=== PATIENT | female | born 1940 | race Caucasian/White ===

== ENCOUNTER 2021-07-30 18:15 | Inpatient (IN) | payer MEDICARE ==
[~2021-07-30 18:15] MED LIST: FLU VACC QS2021-22(6MOS UP)/PF 60 MCG/0.5 ML SYRINGE IM ONE
[2021-07-30 23:13] VITALS: BMI 28.5
[2021-07-31] MEDS ORDERED: Ondansetron PF 4 MG/2 ML Vial IVP PRN (00:10)
[2021-07-31] MEDS ORDERED: Dextrose 5% in Water 1,000 ML IV PRN (00:10)
[2021-07-31] MEDS ORDERED: Ondansetron ODT 4 MG TAB PO PRN (00:10)
[2021-07-31] MEDS ORDERED: Acetaminophen 650 MG Suppository PR PRN (00:10)
[2021-07-31] MEDS ORDERED: Dextrose 50% Abboject 50 ML SYRINGE SLOW IVP PRN (00:10)
[2021-07-31] MEDS ORDERED: Ketorolac Tromethamine 30 MG/ML VIAL IVP SCH (00:15)
[2021-07-31] MEDS: HumaLOG 300 UNITS/3 ML VIAL SC PRN ×3 (01:29→16:23)
[2021-07-31 02:18] LABS: Troponin I 0.028 ng/mL (< 0.028)
[2021-07-31] MEDS: Acetaminophen 325 MG TAB PO PRN ×5 (05:20→23:45)
[2021-07-31 05:46] LABS: #Eosinphils 0.1 thou/uL (0.0-0.7); #Lymphocytes 2.6 thou/uL (1.20-3.40); #Monocytes 0.5 thou/uL (0.11-0.59); #Neutrophils 3.4 thou/uL (1.40-6.50); %Basophils 0.6 % (0.0-1.0); %Eosinophils 1.4 % (0.0-10.0); %Lymphocytes 39.6 % (21.0-51.0); %Monocytes 7.3 % (0.0-10.0); %Neutrophils 51.2 % (42.0-75.0); Hemoglobin 11.1 g/dL (12.0-16.0); Mean Corpuscular HGB CONC 34.5 g/dL (32.0-36.0); Mean Corpuscular Hemoglobin 31.5 pg (27.0-31.0); Mean Corpuscular Volume 91.2 fL (78.0-98.0); Platelet Count 229 thou/uL (130-400); RBC Distribution Width 11.5 % (11.5-14.5); Red Blood Cell (RBC) Count 3.53 mill/uL (4.20-5.40); White Blood Cell (WBC) Count 6.6 thou/uL (4.8-10.8)
[2021-07-31 06:07] LABS: Anion Gap 13 mmol/L (10-20); BUN (Urea Nitrogen) 4 mg/dL (9.8-20.1); Calc. Creatinine Clearance 80 mL/min (70-130); Calcium 8.8 mg/dL (7.8-10.44); Carbon Dioxide 24 mmol/L (23-31); Chloride 95 mmol/L (98-107); Glucose 181 mg/dL (83-110); Potassium 4.1 mmol/L (3.5-5.1); Sodium 128 mmol/L (136-145)
[2021-07-31] MEDS: Ketorolac Tromethamine 30 MG/ML VIAL IVP PRN ×3 (06:14→18:10)
[2021-07-31] MEDS: Levothyroxine Sodium 25 MCG TAB PO SCH (06:15)
[2021-07-31] MEDS: Carvedilol 6.25 MG TAB PO SCH ×2 (09:27→16:38)
[2021-07-31] MEDS: Enoxaparin Sodium 40 MG/0.4 ML SYRINGE SC SCH (09:27)
[2021-07-31] MEDS: Amlodipine 10 MG TAB PO SCH (09:28)
[2021-07-31] MEDS: Sodium Chloride 0.9% 1,000 ML IV SCH (09:41)
[2021-07-31] MEDS: Benzonatate 100 MG CAP PO PRN ×2 (14:52→23:45)
[2021-07-31] MEDS: hydrALAZINE 25 MG TAB PO SCH (20:17)
[2021-07-31] MEDS: Simvastatin 5 MG TAB PO SCH (20:17)
[2021-07-31] MEDS: Melatonin 3 MG TAB PO SCH (20:17)
[2021-08-01] MEDS: Sodium Chloride 0.9% 1,000 ML IV SCH (03:53)
[2021-08-01] MEDS: Levothyroxine Sodium 25 MCG TAB PO SCH (05:24)
[2021-08-01] MEDS: Fentanyl 100 MCG/2 ML VIAL SLOW IVP PRN (05:24)
[2021-08-01 05:35] LABS: #Eosinphils 0.3 thou/uL (0.0-0.7); #Lymphocytes 4.5 thou/uL (1.20-3.40); #Monocytes 0.5 thou/uL (0.11-0.59); #Neutrophils 4.5 thou/uL (1.40-6.50); %Basophils 0.3 % (0.0-1.0); %Eosinophils 3.3 % (0.0-10.0); %Lymphocytes 45.6 % (21.0-51.0); %Monocytes 5.1 % (0.0-10.0); %Neutrophils 45.6 % (42.0-75.0); Hemoglobin 12.1 g/dL (12.0-16.0); Mean Corpuscular HGB CONC 33.5 g/dL (32.0-36.0); Mean Corpuscular Hemoglobin 30.8 pg (27.0-31.0); Mean Corpuscular Volume 91.8 fL (78.0-98.0); Mean Platelet Volume 7.2 fL (7.4-10.4); Platelet Count 258 thou/uL (130-400); RBC Distribution Width 11.4 % (11.5-14.5); Red Blood Cell (RBC) Count 3.94 mill/uL (4.20-5.40); White Blood Cell (WBC) Count 9.9 thou/uL (4.8-10.8)
[2021-08-01 05:56] LABS: Anion Gap 14 mmol/L (10-20); BUN (Urea Nitrogen) 5 mg/dL (9.8-20.1); Calc. Creatinine Clearance 78 mL/min (70-130); Calcium 8.7 mg/dL (7.8-10.44); Carbon Dioxide 24 mmol/L (23-31); Chloride 94 mmol/L (98-107); Glucose 225 mg/dL (83-110); Potassium 3.8 mmol/L (3.5-5.1); Sodium 128 mmol/L (136-145)
[2021-08-01] MEDS: Acetaminophen 325 MG TAB PO PRN ×3 (06:51→18:27)
[2021-08-01] MEDS ORDERED: Loratadine 10 MG TAB PO SCH (07:00)
[2021-08-01] MEDS: hydrALAZINE 25 MG TAB PO SCH ×2 (10:09→21:41)
[2021-08-01] MEDS: Carvedilol 6.25 MG TAB PO SCH ×2 (10:10→18:09)
[2021-08-01] MEDS: Amlodipine 10 MG TAB PO SCH (10:10)
[2021-08-01] MEDS: Polyethylene Glycol 3350 17 GM Packet PO SCH (10:11)
[2021-08-01] MEDS: Enoxaparin Sodium 40 MG/0.4 ML SYRINGE SC SCH (10:11)
[2021-08-01] MEDS ORDERED: Lantus 1000 UNITS/10 ML VIAL SC SCH (10:15)
[2021-08-01] MEDS: HumaLOG 300 UNITS/3 ML VIAL SC PRN ×2 (11:03→21:42)
[2021-08-01] MEDS: Benzonatate 100 MG CAP PO PRN ×2 (12:50→21:41)
[2021-08-01] MEDS ORDERED: Sodium Chloride 0.9% 1,000 ML IV SCH (17:00)
[2021-08-01] MEDS: Melatonin 3 MG TAB PO SCH (21:40)
[2021-08-01] MEDS: Simvastatin 5 MG TAB PO SCH (21:41)
[2021-08-02] MEDS: Levothyroxine Sodium 25 MCG TAB PO SCH (05:17)
[2021-08-02 05:19] LABS: #Basophils 0.1 thou/uL (0.0-0.2); #Eosinphils 0.3 thou/uL (0.0-0.7); #Lymphocytes 3.4 thou/uL (1.20-3.40); #Monocytes 0.4 thou/uL (0.11-0.59); #Neutrophils 3.2 thou/uL (1.40-6.50); %Basophils 0.7 % (0.0-1.0); %Eosinophils 3.6 % (0.0-10.0); %Lymphocytes 47.2 % (21.0-51.0); %Monocytes 4.9 % (0.0-10.0); %Neutrophils 43.7 % (42.0-75.0); Hemoglobin 11.8 g/dL (12.0-16.0); Mean Corpuscular HGB CONC 33.7 g/dL (32.0-36.0); Mean Corpuscular Hemoglobin 30.8 pg (27.0-31.0); Mean Corpuscular Volume 91.5 fL (78.0-98.0); Mean Platelet Volume 7.3 fL (7.4-10.4); Platelet Count 247 thou/uL (130-400); RBC Distribution Width 11.6 % (11.5-14.5); Red Blood Cell (RBC) Count 3.82 mill/uL (4.20-5.40); White Blood Cell (WBC) Count 7.2 thou/uL (4.8-10.8)
[2021-08-02 05:46] LABS: Anion Gap 13 mmol/L (10-20); BUN (Urea Nitrogen) 5 mg/dL (9.8-20.1); Calc. Creatinine Clearance 85 mL/min (70-130); Calcium 8.9 mg/dL (7.8-10.44); Carbon Dioxide 23 mmol/L (23-31); Chloride 99 mmol/L (98-107); Glucose 180 mg/dL (83-110); Magnesium 1.9 mg/dL (1.6-2.6); Potassium 3.9 mmol/L (3.5-5.1); Sodium 131 mmol/L (136-145)
[2021-08-02] MEDS: HumaLOG 300 UNITS/3 ML VIAL SC PRN ×3 (06:05→17:07)
[2021-08-02] MEDS: Acetaminophen 325 MG TAB PO PRN ×2 (06:36→18:16)
[2021-08-02] MEDS ORDERED: Non-Formulary Item 1 EACH (Insulin Degludec [Tresiba Flextouch U-100] 100 UNIT/ML Insuln. SQ SCH (09:00)
[2021-08-02] MEDS ORDERED: Lantus 1000 UNITS/10 ML VIAL SC SCH (09:00)
[2021-08-02] MEDS: Carvedilol 6.25 MG TAB PO SCH ×2 (09:03→17:06)
[2021-08-02] MEDS: Amlodipine 10 MG TAB PO SCH (09:03)
[2021-08-02] MEDS: hydrALAZINE 25 MG TAB PO SCH ×2 (09:03→20:53)
[2021-08-02] MEDS: Enoxaparin Sodium 40 MG/0.4 ML SYRINGE SC SCH (09:04)
[2021-08-02] MEDS: Polyethylene Glycol 3350 17 GM Packet PO SCH (09:04)
[2021-08-02] MEDS ORDERED: Magnesium Sulfate 2 GM in Sodium Chloride 0.9% 100 ML IVPB SCH (10:00)
[2021-08-02] MEDS ORDERED: Magnesium 2 GM/50 ML 2 GM in Premix Bag 1 BAG IVPB SCH (10:30)
[2021-08-02] MEDS: Benzonatate 100 MG CAP PO PRN (20:53)
[2021-08-02] MEDS: Melatonin 3 MG TAB PO SCH (20:53)
[2021-08-02] MEDS: Simvastatin 5 MG TAB PO SCH (20:53)
[2021-08-03] MEDS: Acetaminophen 325 MG TAB PO PRN ×2 (03:48→09:36)
[2021-08-03 05:12] LABS: #Eosinphils 0.2 thou/uL (0.0-0.7); #Lymphocytes 2.6 thou/uL (1.20-3.40); #Monocytes 0.4 thou/uL (0.11-0.59); #Neutrophils 3.3 thou/uL (1.40-6.50); %Basophils 0.2 % (0.0-1.0); %Lymphocytes 39.6 % (21.0-51.0); %Neutrophils 51.2 % (42.0-75.0); Hemoglobin 10.2 g/dL (12.0-16.0); Mean Corpuscular HGB CONC 33.8 g/dL (32.0-36.0); Mean Corpuscular Hemoglobin 31.3 pg (27.0-31.0); Mean Corpuscular Volume 92.4 fL (78.0-98.0); Mean Platelet Volume 7.4 fL (7.4-10.4); Platelet Count 205 thou/uL (130-400); RBC Distribution Width 11.5 % (11.5-14.5); Red Blood Cell (RBC) Count 3.26 mill/uL (4.20-5.40); White Blood Cell (WBC) Count 6.5 thou/uL (4.8-10.8)
[2021-08-03 05:37] LABS: Anion Gap 10 mmol/L (10-20); BUN (Urea Nitrogen) 7 mg/dL (9.8-20.1); Calc. Creatinine Clearance 80 mL/min (70-130); Calcium 8.1 mg/dL (7.8-10.44); Carbon Dioxide 24 mmol/L (23-31); Chloride 96 mmol/L (98-107); Glucose 340 mg/dL (83-110); Potassium 4.1 mmol/L (3.5-5.1); Sodium 126 mmol/L (136-145)
[2021-08-03] MEDS: Levothyroxine Sodium 25 MCG TAB PO SCH (05:44)
[2021-08-03] MEDS: HumaLOG 300 UNITS/3 ML VIAL SC PRN ×3 (05:46→18:12)
[2021-08-03] MEDS: Amlodipine 10 MG TAB PO SCH (09:36)
[2021-08-03] MEDS: Carvedilol 6.25 MG TAB PO SCH ×2 (09:36→18:10)
[2021-08-03] MEDS: Benzonatate 100 MG CAP PO PRN ×2 (09:37→21:19)
[2021-08-03] MEDS: Enoxaparin Sodium 40 MG/0.4 ML SYRINGE SC SCH (09:37)
[2021-08-03] MEDS: hydrALAZINE 25 MG TAB PO SCH ×2 (09:37→21:18)
[2021-08-03] MEDS: Lantus 1000 UNITS/10 ML VIAL SC SCH ×2 (09:38→21:20)
[2021-08-03] MEDS: Polyethylene Glycol 3350 17 GM Packet PO SCH (09:39)
[2021-08-03] MEDS ORDERED: Loratadine 10 MG TAB PO PRN (12:02)
[2021-08-03] MEDS: Simvastatin 5 MG TAB PO SCH (21:18)
[2021-08-03] MEDS: Melatonin 3 MG TAB PO SCH (21:18)
[2021-08-04] MEDS: Fentanyl 100 MCG/2 ML VIAL SLOW IVP PRN (05:45)
[2021-08-04] MEDS: HumaLOG 300 UNITS/3 ML VIAL SC PRN ×3 (05:46→21:39)
[2021-08-04] MEDS: Levothyroxine Sodium 25 MCG TAB PO SCH (05:46)
[2021-08-04] MEDS: Enoxaparin Sodium 40 MG/0.4 ML SYRINGE SC SCH (09:16)
[2021-08-04] MEDS: Carvedilol 6.25 MG TAB PO SCH ×2 (09:17→17:59)
[2021-08-04] MEDS: hydrALAZINE 25 MG TAB PO SCH ×2 (09:17→21:42)
[2021-08-04] MEDS: Amlodipine 10 MG TAB PO SCH (09:17)
[2021-08-04] MEDS: Polyethylene Glycol 3350 17 GM Packet PO SCH (09:18)
[2021-08-04] MEDS: Lantus 1000 UNITS/10 ML VIAL SC SCH ×2 (09:23→21:38)
[2021-08-04] MEDS: Benzonatate 100 MG CAP PO PRN ×2 (09:31→17:59)
[2021-08-04] MEDS: Acetaminophen 325 MG TAB PO PRN (18:03)
[2021-08-04] MEDS: Simvastatin 5 MG TAB PO SCH (21:41)
[2021-08-04] MEDS: Melatonin 3 MG TAB PO SCH (21:42)
[2021-08-05] MEDS: Levothyroxine Sodium 25 MCG TAB PO SCH (05:44)
[2021-08-05] MEDS: Acetaminophen 325 MG TAB PO PRN ×2 (05:44→20:05)
[2021-08-05] MEDS: HumaLOG 300 UNITS/3 ML VIAL SC PRN ×4 (05:44→22:23)
[2021-08-05] MEDS: Polyethylene Glycol 3350 17 GM Packet PO SCH (08:34)
[2021-08-05] MEDS: Enoxaparin Sodium 40 MG/0.4 ML SYRINGE SC SCH (08:34)
[2021-08-05] MEDS: hydrALAZINE 25 MG TAB PO SCH ×2 (08:35→22:22)
[2021-08-05] MEDS: Amlodipine 10 MG TAB PO SCH (08:35)
[2021-08-05] MEDS: Carvedilol 6.25 MG TAB PO SCH ×2 (08:36→16:26)
[2021-08-05] MEDS: Lantus 1000 UNITS/10 ML VIAL SC SCH ×2 (08:38→22:23)
[2021-08-05] MEDS: Benzonatate 100 MG CAP PO PRN ×3 (08:43→22:23)
[2021-08-05] MEDS: Melatonin 3 MG TAB PO SCH (22:22)
[2021-08-05] MEDS: Simvastatin 5 MG TAB PO SCH (22:23)
[2021-08-06] MEDS: Levothyroxine Sodium 25 MCG TAB PO SCH (05:14)
[2021-08-06] MEDS: Acetaminophen 325 MG TAB PO PRN (05:14)
[2021-08-06] MEDS: Benzonatate 100 MG CAP PO PRN (05:14)
[2021-08-06] MEDS: HumaLOG 300 UNITS/3 ML VIAL SC PRN ×2 (06:15→11:19)
[2021-08-06] MEDS: Lantus 1000 UNITS/10 ML VIAL SC SCH (08:55)
[2021-08-06] MEDS: Enoxaparin Sodium 40 MG/0.4 ML SYRINGE SC SCH (09:00)
[2021-08-06] MEDS: Polyethylene Glycol 3350 17 GM Packet PO SCH (09:00)
[2021-08-06] MEDS: Amlodipine 10 MG TAB PO SCH (09:01)
[2021-08-06] MEDS: Carvedilol 6.25 MG TAB PO SCH (09:01)
[2021-08-06] MEDS: hydrALAZINE 25 MG TAB PO SCH (09:01)
[2021-08-06 11:27] LABS: Anion Gap 15 mmol/L (10-20); BUN (Urea Nitrogen) 10 mg/dL (9.8-20.1); Calc. Creatinine Clearance 72 mL/min (70-130); Calcium 10.1 mg/dL (7.8-10.44); Carbon Dioxide 25 mmol/L (23-31); Chloride 92 mmol/L (98-107); Glucose 254 mg/dL (83-110); Potassium 4.2 mmol/L (3.5-5.1); Sodium 128 mmol/L (136-145)
[2021-08-06 11:39] VITALS: BP 128/59; TEMP 98
== END 2021-08-06 12:55 | disposition home health service (06) | DRG 637 ==
LOC: 2SW 18:15 → 2NO 07-31 18:11 → OBSVTOIN 08-02 09:54
PROVIDERS: ADMIT Internal Medicine; ATTEND Internal Medicine
DX: E10.649 Type 1 diabetes mellitus with hypoglycemia without coma (principal); G93.41 Metabolic encephalopathy; S22.41XA Multiple fractures of ribs, right side, initial encounter for closed fracture; E87.1 Hypo-osmolality and hyponatremia; Z20.822 Contact with and (suspected) exposure to COVID-19; W19.XXXA Unspecified fall, initial encounter; E03.9 Hypothyroidism, unspecified; M25.562 Pain in left knee; M25.561 Pain in right knee; I10 Essential (primary) hypertension; Z85.820 Personal history of malignant melanoma of skin; Z88.5 Allergy status to narcotic agent; Z91.040 Latex allergy status; Z79.899 Other long term (current) drug therapy; Z79.4 Long term (current) use of insulin; Z79.890 Hormone replacement therapy; Z90.09 Acquired absence of other part of head and neck; Z90.710 Acquired absence of both cervix and uterus
CPT/HCPCS: 36415; 36416; 80048; 83036; 83735; 84484; 85025; 93306; 96372; 96374; 96375; 96376; G0378; J1650; J1815; J1885; J2405; J3010; J3475; J7050